=== PATIENT | male | born 1985 | race Caucasian/White ===

== ENCOUNTER 2021-12-19 06:01 | Emergency (ER) | payer SELFPAY ==
[2021-12-19 06:42] LABS: HEMOGLOBIN 15.9 gm/dl (14.0-17.5); RED BLOOD COUNT 5.24 M/UL (4.20-5.50); WHITE BLOOD COUNT 8.3 K/UL (4.5-11.0)
[2021-12-19 07:21] LABS: BUN/CREATININE RATIO 11 (0-10)
[2021-12-19] MEDS ORDERED: HYDROCODON-ACE1 EAC2 PO (10:08)
[2021-12-19] MEDS ORDERED: FLOMAX0.4 MG PO (10:11)
== END 2021-12-19 11:17 | disposition home or self-care (01) ==
LOC: ER1 06:01
PROVIDERS: Family Medicine
DX: N13.2 Hydronephrosis with renal and ureteral calculous obstruction (principal); Z87.442 Personal history of urinary calculi
CPT/HCPCS: 80053; 81001; 85025; 96374; 96375; 99284; J1885; J2270; J2405